=== PATIENT | male | born 1935 | race Caucasian/White ===

== ENCOUNTER 2020-06-08 12:15 | Inpatient (IN) | payer BC ==
[~2020-06-08] VITALS: Ht 182.9 cm; Wt 91.2 kg
--- NOTE | 2020-06-08 12:20 | NUR ---
Patient came in to the er, arleen from home, had syncopal episode in the bathroom. On room air, breathing evenly and unlabored. Connected to the monitor and pulse ox. kept comfortable, will continue to monitor accordingly.
[2020-06-08 12:45] LABS: BASOPHILS % (AUTO) 0.5 % (0.0-2.0); EOSINOPHILS % (AUTO) 1.7 % (0.0-6.0); HEMATOCRIT 42 % (39-51); LYMPHOCYTES # (AUTO) 1.2 /CMM (0.8-4.8); MEAN CORPUSCULAR HGB CONC 34 g/dl (31.0-36.0); MEAN CORPUSCULAR VOLUME 92 fL (80-96); MONOCYTES # (AUTO) 0.7 /CMM (0.1-1.30); MONOCYTES % (AUTO) 9.3 % (2.0-12.0); NEUTROPHILS # (AUTO) 5.6 /CMM (1.8-8.9); NEUTROPHILS % (AUTO) 72.5 % (43.0-81.0); PLATELET COUNT (AUTO) 129 /CMM (150-450); RED BLOOD CELL COUNT(AUTO) 4.56 MIL/uL (4.5-6.0); WHITE BLOOD COUNT (AUTO) 7.7 K/uL (4.3-11.0)
[2020-06-08 12:54] LABS: CALCIUM, SERUM 7.9 mg/dL (8.5-10.1); CARBON DIOXIDE 28 mmol/L (21-32); CHLORIDE 105 mmol/L (98-107); CREATININE 1.3 mg/dL (0.6-1.3); GLUCOSE 109 mg/dL (74-106); POTASSIUM 4.1 mmol/L (3.5-5.1); SODIUM SERUM 139 mmol/L (136-145); UREA NITROGEN, BLOOD 16 mg/dL (7-18)
[2020-06-08] MEDS ORDERED: ESCI10TA PO (12:59)
[2020-06-08] MEDS ORDERED: DONE10TA44 PO (12:59)
[2020-06-08] MEDS ORDERED: LEVO50TA8 PO (12:59)
[2020-06-08] MEDS ORDERED: MEMA5TAB42 PO (12:59)
[2020-06-08] MEDS ORDERED: FINA5TAB11 PO (13:00)
--- NOTE | 2020-06-08 13:40 | NUR ---
Pt assigned to Telemetry room [facility] [place]
--- NOTE | 2020-06-08 13:47 | NUR ---
report given to Dennis CARDENAS for karen.
--- NOTE | 2020-06-08 13:57 | NUR ---
covid 19 swab collected and sent to lab
[2020-06-08] MEDS ORDERED: MAGNESIUM HYDROXIDE 30 ML UDC PO PRN (14:30)
[2020-06-08] MEDS ORDERED: MAG HYDROX/AL HYDROX/SIMETH 30 ML UDC PO PRN (14:30)
[2020-06-08] MEDS ORDERED: ONDANSETRON HCL/PF 4 MG/2 ML VIAL IVP PRN (14:30)
[2020-06-08] MEDS ORDERED: TEMAZEPAM 15 MG CAPSULE PO PRN (14:30)
[2020-06-08] MEDS ORDERED: ACETAMINOPHEN 325 MG TABLET PO PRN (14:30)
[2020-06-08] MEDS ORDERED: HYDROCODONE/APAP 5/325MG TABLET PO PRN (14:30)
[2020-06-08] MEDS ORDERED: Z GUARD REMEDY 2 OZ OINT TP PRN (14:30)
--- NOTE | 2020-06-08 15:55 | NUR ---
wheeled patient via gurney accompanied by RN and emt in no distress. RN at bedside to assume care.
[2020-06-08] MEDS: MEMANTINE HCL 5 MG TABLET PO SCH (18:10)
[2020-06-08] MEDS: QUETIAPINE FUMARATE 25 MG TABLET PO SCH (18:10)
--- NOTE | 2020-06-08 18:44 | NUR ---
RECIEVED PATIENT AT [address] [facility] TO ROOM 325-1 ACCOMPANIED BY . PATIENT IS ALERT AND ORIENTED X2-3 WITH EPISODES OF CONFUSION AND POOR CONCENTRATION. ADMISSION ASSESSMENT COMPLETED ALONG WITH MED RECONCILLATION. PATIENT SEEN BY DR.NOEL DIANA RICKS , PRESCRIBED SEROQUEL FOR MOOD. PATIENT ON TELE MONITOR. TOLERATING ROOM AIR WELL VITALS STABLE, PATIENT STABLE. PATIENT ABLE TO AMBULATE TO RESTROOM BY THEIRSELF. AWAITING ON PSYCHIATRIC CONSULT ALL NEEDS ATTENDED TO AND MET BY STAFF.
[2020-06-08 20:00] VITALS: BP 107/54
[2020-06-08] MEDS ORDERED: DONEPEZIL 5 MG TABLET PO SCH (22:00)
--- NOTE | 2020-06-08 22:07 | NUR ---
[facility] CONFIRMED THEY HAVE THE INFORMATION FOR PSYCH CONSULT SPOKE WITH RN NOVEM STATE THAT THEY HAVE THE INFORMATION OF PT FOR PSYCH CONSULT. STATE THAT DR. ESPINOSA WILL BE COMING TO PERFORM THE CONSULT.
[2020-06-08] MEDS: IV NS 0.9% 1,000 ML IV PRN (23:44)
--- NOTE | 2020-06-08 23:45 | NUR ---
IVF THERAPY INITIATED ORDERED.
[2020-06-09] VITALS: BP 121/84
[2020-06-09 04:00] VITALS: BP 147/76
[2020-06-09 07:07] LABS: BASOPHILS % (AUTO) 0.5 % (0.0-2.0); EOSINOPHILS % (AUTO) 1.6 % (0.0-6.0); HEMATOCRIT 42 % (39-51); HEMOGLOBIN 14.1 g/dL (13.5-17.5); LYMPHOCYTES # (AUTO) 1.2 /CMM (0.8-4.8); LYMPHOCYTES % (AUTO) 16.3 % (20.0-44.0); MEAN CORPUSCULAR HGB CONC 34 g/dl (31.0-36.0); MEAN CORPUSCULAR VOLUME 92 fL (80-96); MONOCYTES # (AUTO) 0.8 /CMM (0.1-1.30); MONOCYTES % (AUTO) 10.4 % (2.0-12.0); NEUTROPHILS # (AUTO) 5.4 /CMM (1.8-8.9); NEUTROPHILS % (AUTO) 71.2 % (43.0-81.0); PLATELET COUNT (AUTO) 135 /CMM (150-450); RED BLOOD CELL COUNT(AUTO) 4.58 MIL/uL (4.5-6.0); WHITE BLOOD COUNT (AUTO) 7.6 K/uL (4.3-11.0)
--- NOTE | 2020-06-09 07:50 | NUR ---
RN OPENING NOTES PATIENT IS ALERT AND ORIENTED WITH FORGETFULNESS. NO C/O PAIN OR DISCOMFORT. BREATHING EVEN AND UNLABORED. IV FLUIDS RUNNING AT 75 CC/HOUR. BED IS IN LOWEST AND LOCKED POSITION. CALL LIGHT WITH IN REACH.BED ALARM IN PLACE.
[2020-06-09 08:00] VITALS: BP 140/73
[2020-06-09 08:05] LABS: CARBON DIOXIDE 28 mmol/L (21-32); CHLORIDE 105 mmol/L (98-107); CREATININE 1.3 mg/dL (0.6-1.3); GLUCOSE 97 mg/dL (74-106); MAGNESIUM 2.3 mg/dL (1.8-2.4); PHOSPHORUS 3.9 mg/dL (2.5-4.9); SODIUM SERUM 140 mmol/L (136-145); UREA NITROGEN, BLOOD 17 mg/dL (7-18)
[2020-06-09 08:13] LABS: URINE TOTAL PROTEIN 5.8 mg/dL (0-11.9)
[2020-06-09 08:21] LABS: CHOLESTEROL 149 mg/dL (<200); HDL CHOLESTEROL 58 mg/dL (40-60); LDL 85 mg/dL (0-99); THYROID STIMULATING HORMONE 0.837 uIU/mL (0.358-3.74); TRIGLYCERIDES 57 mg/dL (30-150)
[2020-06-09 08:25] LABS: BILIRUBIN,URINE NEGATIVE (NEGATIVE); COLOR,URINE YELLOW (YELLOW); LEUKOCYTE ESTERASE ,URINE NEGATIVE (NEGATIVE); NITRITE, URINE NEGATIVE (NEGATIVE); PROTEIN,URINE NEGATIVE (NEGATIVE); UGLUCOSE NEGATIVE (NEGATIVE); UROBILINOGEN,URINE 0.2 EU/dL (0.2)
[2020-06-09] MEDS: QUETIAPINE FUMARATE 25 MG TABLET PO SCH (08:39)
[2020-06-09] MEDS: FINASTERIDE (5 MG) 5 MG TABLET PO SCH (08:39)
[2020-06-09] MEDS: MEMANTINE HCL 5 MG TABLET PO SCH ×2 (08:39→17:20)
[2020-06-09] MEDS: ESCITALOPRAM OXALATE (10 MG) 10 MG TABLET PO SCH (08:39)
[2020-06-09] MEDS: LEVOTHYROXINE SODIUM 50 MCG TABLET PO SCH (08:39)
[2020-06-09] MEDS ORDERED: IV NS 0.9% 500 ML IV ONE (12:00)
[2020-06-09 12:11] VITALS: BP_SYST 111; BP_SYST 113; BP_SYST 119; BP_DIAS 53; BP_DIAS 56; BP_DIAS 64
--- NOTE | 2020-06-09 12:15 | NUR ---
Orthostatic bp readings done. results relayed to Dr Weber and RON Castro. Per SPLITTER HAND to give NS 500 bolus one time and to restart old order of ns 75 cc/hour. Order noted and carried out. Normal saline bolus initiated.
[2020-06-09 13:43] LABS: EOSINOPHIL,URINE None Seen
[2020-06-09] MEDS: ENOXAPARIN SODIUM 40 MG/0.4 ML DISP.SYRIN SQ SCH (15:11)
--- NOTE | 2020-06-09 15:27 | NUR ---
PATIENT NOTED WITH DISLODGED IV, NEW IV LINE STARTED ON RIGHT FOREARM 18 GAUZE FLUSHED WELL AND CONNECTED TO IV FLUIDS.
--- NOTE | 2020-06-09 15:39 | NUR ---
SUPERVISOR CUTTING DEPARTMENT NOTE PT IS AT VTE SCORE OF 3 HIGH RISK , WILL CHANGE IN FLOWSHEET
[2020-06-09 16:00] VITALS: BP 118/53
[2020-06-09] MEDS: IV NS 0.9% 1,000 ML IV PRN (16:43)
--- NOTE | 2020-06-09 19:19 | NUR ---
RN CLOSING NOTES PATIENT CURRENTLY IN BED WITH A SITTER AT BEDSIDE. NO S/S OF RESPIRATORY DISTRESS. IV TO LEFT FOREARM 18 GAUZE NOTED, FLUSHED WELL. NO C/O PAIN OR DISCOMFORT. PATIENT SEEN BY PSYCHIATRIST DR ESPINOSA AND NEUROLOGIST DR MCNEILL DURING SHIFT. ENDORSED TO NEXT SHIFT FOR ANGELICA. PATIENT CURRENLTY IN A PLEASENT MOOD.
--- NOTE | 2020-06-09 20:00 | NUR ---
RN OPENING NOTES PATIENT IS IN BED AWAKE. PT HAS A SITTER AT BEDSIDE. PT'S ON ROOM AIR, BREATHING EVEN AND UNLABORED. PT HAS AN IV ACCESS GAUGE #18 IN HIS LEFT FOREARM NOTED. IV ACCESS IS INTACT AND PATENT. SAFETY MEASURES IN PLACE. BED IS LOCKED WITH SIDE RAILS RAISED. WILL CONTINUE TO MONITOR THE PT.
[2020-06-09 20:15] VITALS: BP 108/57
[2020-06-10 07:01] LABS: BASOPHILS # (AUTO) 0.1 /CMM (0.0-0.2); BASOPHILS % (AUTO) 0.7 % (0.0-2.0); EOSINOPHILS % (AUTO) 1.9 % (0.0-6.0); HEMATOCRIT 39 % (39-51); HEMOGLOBIN 13.3 g/dL (13.5-17.5); LYMPHOCYTES # (AUTO) 1.1 /CMM (0.8-4.8); MEAN CORPUSCULAR HGB CONC 34 g/dl (31.0-36.0); MEAN CORPUSCULAR VOLUME 91 fL (80-96); MONOCYTES % (AUTO) 12.3 % (2.0-12.0); NEUTROPHILS # (AUTO) 5.7 /CMM (1.8-8.9); NEUTROPHILS % (AUTO) 71.1 % (43.0-81.0); PLATELET COUNT (AUTO) 123 /CMM (150-450)
--- NOTE | 2020-06-10 07:15 | NUR ---
ms rn received on bed, awake,alert,oriented x 2-3,not in any form of distress, respirations even and unlabored,no sob noted, lungs are clear,abdomen soft,positive bowel sounds,denies pain at this time, patient on one on one sitter for safety and comfort.
[2020-06-10] MEDS: FINASTERIDE (5 MG) 5 MG TABLET PO SCH (08:49)
[2020-06-10] MEDS: ESCITALOPRAM OXALATE (10 MG) 10 MG TABLET PO SCH (08:49)
[2020-06-10] MEDS: MEMANTINE HCL 5 MG TABLET PO SCH (08:49)
[2020-06-10] MEDS: LEVOTHYROXINE SODIUM 50 MCG TABLET PO SCH (08:49)
[2020-06-10] MEDS: ENOXAPARIN SODIUM 40 MG/0.4 ML DISP.SYRIN SQ SCH (08:50)
--- NOTE | 2020-06-10 09:00 | NUR ---
ms box breakfast served,due meds given,tolerated well.
[2020-06-10 10:14] LABS: CALCIUM, SERUM 7.7 mg/dL (8.5-10.1); CREATININE 1.2 mg/dL (0.6-1.3); MAGNESIUM 2.1 mg/dL (1.8-2.4); PHOSPHORUS 3.4 mg/dL (2.5-4.9); POTASSIUM 4.1 mmol/L (3.5-5.1)
--- NOTE | 2020-06-10 10:30 | NUR ---
ms rn was seen by tamiko ramirez/ order to go home today.
--- NOTE | 2020-06-10 12:30 | NUR ---
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
--- NOTE | 2020-06-10 12:45 | NUR ---
ms rn texted Jana morrison ,and made aware that wants to speak w/ her.
--- NOTE | 2020-06-10 13:33 | NUR ---
ms rn on bed, no distress noted.waiting for carlos to call.
--- NOTE | 2020-06-10 14:00 | NUR ---
ms charu gonzalez texted back w/ list of medsfor rx to fill up.
--- NOTE | 2020-06-10 14:15 | NUR ---
ms rn patient went home accompanied by , discharge instructions given and understood.
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
--- NOTE | 2020-06-11 12:07 | NUR ---
HOMAR received call from [facility] APS worker, Ida Sheriff [phone] wanting additional information about APS report. HOMAR provided information know to this SW. Per Ida, he will follow up with this case. Noted.
== END 2020-06-10 14:20 | disposition home or self-care (01) | DRG 73 ==
LOC: ER 12:23 → TELE 15:34 → MED 06-10 08:03
PROVIDERS: ADMIT Nurse Practitioner Acute Care; ATTEND Registered Nurse
DX: G90.8 Other disorders of autonomic nervous system (principal); G93.41 Metabolic encephalopathy; N17.0 Acute kidney failure with tubular necrosis; F03.91 Unspecified dementia, unspecified severity, with behavioral disturbance; E86.0 Dehydration; N18.9 Chronic kidney disease, unspecified; E03.9 Hypothyroidism, unspecified; F32.9 Major depressive disorder, single episode, unspecified; N40.0 Benign prostatic hyperplasia without lower urinary tract symptoms; R00.1 Bradycardia, unspecified; I34.0 Nonrheumatic mitral (valve) insufficiency; Z79.4 Long term (current) use of insulin; Z20.822 Contact with and (suspected) exposure to COVID-19
CPT/HCPCS: 36415; 71045-TC; 80048-TC; 80061-TC; 82570-TC; 83735-TC; 83880; 84100-TC; 84155-TC; 84300-TC; 84439-TC; 84443-TC; 84484-TC; 85025-TC; 87081-TC; 93307-TC; 97112-TC; 97116-TC; 97530-TC; C9803; G0378; J1650; J7030; J7040

== ENCOUNTER 2020-11-02 16:49 | Emergency (ER) | payer BC ==
[~2020-11-02] VITALS: Ht 175.3 cm; Wt 92.5 kg
[2020-11-02 16:49] VITALS: BP 121/54
[~2020-11-02 16:49] MED LIST: ESCI10TA PO; FINA5TAB11 PO; LEVO50TA8 PO; MEMA5TAB42 PO
--- NOTE | 2020-11-02 17:12 | NUR ---
SEEN AND EXAMINED BY .
[2020-11-02] MEDS ORDERED: TDAP [DIPH/PERTUSSIS/TET] 0.5 ML VIAL IM ONE ×2 (17:30→17:32)
[2020-11-02] MEDS ORDERED: BACI/NEOM/POLY B OINT PKT 1 UDPKT PACKET TP ONE (17:30)
--- NOTE | 2020-11-02 17:48 | NUR ---
MUTUEL MACHINE OPERATOR AT BEDSIDE FOR XRAY.
--- NOTE | 2020-11-02 18:19 | NUR ---
ANGELLA FIELD AT BEDSIDE FOR WOUND CLEANING AND DRESSING.
--- NOTE | 2020-11-02 18:42 | NUR ---
Patient discharged to home in stable condition. Written and verbal after care instructions given. Patient verbalizes understanding of instruction.
== END 2020-11-02 18:42 | disposition home or self-care (01) ==
LOC: ER 16:52
DX: S51.011A Laceration without foreign body of right elbow, initial encounter (principal); F03.90 Unspecified dementia, unspecified severity, without behavioral disturbance, psychotic disturbance, mood disturbance, and anxiety; Z79.899 Other long term (current) drug therapy; W26.8XXA Contact with other sharp object(s), not elsewhere classified, initial encounter; Y93.89 Activity, other specified; Y92.89 Other specified places as the place of occurrence of the external cause; Y99.8 Other external cause status
CPT/HCPCS: 73080-TC; 90715